=== PATIENT | female | born 1975 | race Caucasian/White ===

== ENCOUNTER 2018-06-02 12:54 | Outpatient (CLI) | payer MEDICAID ==
[~2018-06-02 12:54] MED LIST: HYDR-3720 PO; MUCINEX; PANT40TA2 PO; RABE20TA PO; SULF1TAB38 PO
== END 2018-06-02 13:30 | disposition home or self-care (01) ==
LOC: SLEEP 12:54
PROVIDERS: ATTEND Surgery
DX: G47.00 Insomnia, unspecified (principal); R06.83 Snoring; E66.9 Obesity, unspecified

== ENCOUNTER 2018-07-10 15:15 | Outpatient (RCR) | payer MEDICAID | END 2018-07-10 15:56 | disposition home or self-care (01) | PROVIDERS: ATTEND Nurse Practitioner | DX: M89.8X1 Other specified disorders of bone, shoulder (principal) ==

== ENCOUNTER → 2018-07-24 | Outpatient (CLI) | payer MEDICAID | LOC: CARD 08:58 | PROVIDERS: ATTEND Internal Medicine Cardiovascular Disease | DX: F41.9 Anxiety disorder, unspecified (principal); Z82.49 Family history of ischemic heart disease and other diseases of the circulatory system; E11.9 Type 2 diabetes mellitus without complications; Z83.3 Family history of diabetes mellitus; E66.9 Obesity, unspecified | CPT/HCPCS: 93306 ==

== ENCOUNTER 2018-09-05 01:36 | Emergency (ER) | payer SELFPAY ==
[~2018-09-05] VITALS: Ht 160 cm; Wt 101.6 kg
[2018-09-05] MEDS ORDERED: KETOROLAC 30 MG/ML VIAL IVP STA (02:04)
[2018-09-05] MEDS ORDERED: LACTATED RINGERS 1,000 ML IV ONE (02:04)
[2018-09-05 02:13] LABS: BASOPHILS % (AUTO) 0 % (0-10); EOSINOPHILS # (AUTO) 0.1 10^3/uL (0.0-0.3); EOSINOPHILS % (AUTO) 1 % (0-10); HEMATOCRIT 38 % (35-52); HEMOGLOBIN 13.3 G/DL (11.5-16.0); LYMPHOCYTES # (AUTO) 2.8 X 10^3 (1.0-4.0); LYMPHOCYTES % (AUTO) 35 % (12-44); MEAN CORPUSCULAR HEMOGLOBIN 31 PG (25-34); MEAN CORPUSCULAR HGB CONC 35 G/DL (32-36); MEAN CORPUSCULAR VOLUME 87 FL (80-99); MEAN PLATELET VOLUME 11.8 FL (7.4-10.4); MONOCYTES # (AUTO) 0.8 X 10^3 (0.0-1.0); MONOCYTES % (AUTO) 10 % (0-12); NEUTROPHILS # (AUTO) 4.3 X 10^3 (1.8-7.8); NEUTROPHILS % (AUTO) 54 % (42-75); PLATELET COUNT 246 10^3/uL (130-400); RED BLOOD COUNT 4.34 10^6/uL (4.35-5.85); RED CELL DISTRIBUTION WIDTH 12.8 % (10.0-14.5); WHITE BLOOD COUNT 8.1 10^3/uL (4.3-11.0)
[2018-09-05] MEDS ORDERED: ONDANSETRON 4 MG/2 ML (SDV) Z0FRAN IVP ONE (02:15)
[2018-09-05 02:34] LABS: ALANINE AMINOTRANSFERASE 30 U/L (0-55); ALBUMIN 4.6 GM/DL (3.2-4.5); ALKALINE PHOSPHATASE 20 U/L (40-136); AMYLASE 40 U/L (25-125); BILIRUBIN,TOTAL 0.4 MG/DL (0.1-1.0); BUN/CREATININE RATIO 20; CALCIUM 10.1 MG/DL (8.5-10.1); CARBON DIOXIDE 20 MMOL/L (21-32); CHLORIDE 107 MMOL/L (98-107); CREATININE SERUM 0.82 MG/DL (0.60-1.30); GFR ESTIMATED > 60; GLUCOSE 120 MG/DL (70-105); LIPASE 33 U/L (8-78); POTASSIUM 3.8 MMOL/L (3.6-5.0); SODIUM 142 MMOL/L (135-145); TOTAL PROTEIN 7.6 GM/DL (6.4-8.2)
[2018-09-05] MEDS ORDERED: fentaNYL INJECTION 100 MCG/2 ML AMP IVP STA ×2 (03:24→04:37)
[2018-09-05] MEDS ORDERED: HYOSCYAMINE 0.125 MG (LEVSIN) TAB PO ONE (03:30)
[2018-09-05 03:46] LABS: BILIRUBIN,URINE NEGATIVE (NEGATIVE); CLARITY,URINE CLEAR; COLOR,URINE YELLOW; GLUCOSE, URINE (UA) NEGATIVE (NEGATIVE); KETONES,URINE NEGATIVE (NEGATIVE); LEUKOCYTE ESTERASE ,URINE 1+ (NEGATIVE); NITRITE,URINE NEGATIVE (NEGATIVE); PH,URINE 5 (5-9); PROTEIN,URINE 2+ (NEGATIVE); UROBILINOGEN,URINE NORMAL (NORMAL)
[2018-09-05 03:55] LABS: BACTERIA,URINE FEW /HPF; HYALINE CASTS, URINE 0-2 /LPF; WBC,URINE RARE /HPF
[2018-09-05] MEDS ORDERED: IOHEXOL 350 MG/ML 150 ML (OMNIPAQUE 350) VIAL IV ONE (04:00)
[2018-09-05] MEDS ORDERED: NS 250 ML (IVPB) BAG IV ONE (04:00)
[2018-09-05] MEDS ORDERED: PANTOPRAZOLE 40 MG (PROTONIX) VIAL IV STA (04:43)
[2018-09-05] MEDS ORDERED: ORPHENADRINE 60 MG/2 ML (NORFLEX) AMP IV STA (04:43)
[2018-09-05] MEDS ORDERED: CYCL10TA9 PO (05:33)
[2018-09-05] MEDS ORDERED: ONDA4TAB8 PO (05:33)
[2018-09-05] MEDS ORDERED: HYOS0.1283 SL (05:33)
[2018-09-05] MEDS ORDERED: PANT40TA2 PO (05:34)
--- NOTE | 2018-09-05 05:35 | ED Abdominal Pain ---
General Chief Complaint: Abdominal/GI Problems Stated Complaint: ABD PAIN, GASTRIC SLEEVE ON [id number],STS MILD CP YES Nursing Triage Note: Pt ambulated to rm 10. Pt c/o severe abdominal pain that began approximately 1 hour prior to arrival. Pt reports taking liquid hydrocodone approximately 45 mins ago. Pt had gastric sleeve on 08/13/2018. Pt's pain is accompanied by nausea. Sepsis Screen: No Definite Risk Allergies and Home Medications Allergies Coded Allergies: No Known Drug Allergies (Verified , 08/30/09) Uncoded Allergies: NKDA (Allergy, Mild, 05/27/09) Home Medications Hydrocodone Bit/Acetaminophen 1 Tab Tablet, 1 TAB PO Q6H PRN for PAIN, (Reported ) Pantoprazole Sod 40 Mg Tab, 40 MG PO DAILY, (Reported) Past Kzlucns-Trnsxi-Talesm Hx Patient Social History Alcohol Use: Denies Use Recreational Drug Use: No 2nd Hand Smoke Exposure: No Recent Foreign Travel: No Contact w/Someone Who Travel: No Recent Infectious Disease Expo: No Recent Hopitalizations: Yes Immunizations Up To Date Date of Pneumonia Vaccine: Nov 18, 2008 Date of Influenza Vaccine: Sep 09, 2014 Past Medical History Surgeries: Yes Ear Surgery, Gallbladder, Hysterectomy, Orthopedic Respiratory: No Cardiac: No Neurological: No Reproductive Disorders: No Sexually Transmitted Disease: No Gastrointestinal: No Musculoskeletal: No Endocrine: No Cancer: No Psychosocial: No Integumentary: No Blood Disorders: No Physical Exam Vital Signs Vital Signs - First Documented 09/05/18 01:53 Temp 98.3 Pulse 70 Resp 22 B/P (MAP) 169/113 (131) Pulse Ox 100 O2 Delivery Room Air Capillary Refill : Less Than 3 Seconds Height/Weight/BMI Height: 5'3.00" Weight: 224lbs. 0.0oz. 101.649343lx; BMI Method:Stated Progress/Results/Core Measures Results/Orders Lab Results Laboratory Tests Test 09/05/18 02:05 09/05/18 03:35 09/05/18 04:48 Range/Units White Blood Count 8.1 4.3-11.0 10^3/uL Red Blood Count 4.34 L 4.35-5.85 10^6/uL Hemoglobin 13.3 11.5-16.0 G/DL Hematocrit 38 35-52 % Mean Corpuscular Volume 87 80-99 FL Mean Corpuscular Hemoglobin 31 25-34 PG Mean Corpuscular Hemoglobin Concent 35 32-36 G/DL Red Cell Distribution Width 12.8 10.0-14.5 % Platelet Count 246 130-400 10^3/uL Mean Platelet Volume 11.8 H 7.4-10.4 FL Neutrophils (%) (Auto) 54 42-75 % Lymphocytes (%) (Auto) 35 12-44 % Monocytes (%) (Auto) 10 0-12 % Eosinophils (%) (Auto) 1 0-10 % Basophils (%) (Auto) 0 0-10 % Neutrophils # (Auto) 4.3 1.8-7.8 X 10^3 Lymphocytes # (Auto) 2.8 1.0-4.0 X 10^3 Monocytes # (Auto) 0.8 0.0-1.0 X 10^3 Eosinophils # (Auto) 0.1 0.0-0.3 10^3/uL Basophils # (Auto) 0.0 0.0-0.1 10^3/uL Sodium Level 142 135-145 MMOL/L Potassium Level 3.8 3.6-5.0 MMOL/L Chloride Level 107 98-107 MMOL/L Carbon Dioxide Level 20 L 21-32 MMOL/L Anion Gap 15 H 5-14 MMOL/L Blood Urea Nitrogen 16 7-18 MG/DL Creatinine 0.82 0.60-1.30 MG/DL Estimat Glomerular Filtration Rate > 60 BUN/Creatinine Ratio 20 Glucose Level 120 H 70-105 MG/DL Calcium Level 10.1 8.5-10.1 MG/DL Corrected Calcium 8.5-10.1 MG/DL Total Bilirubin 0.4 0.1-1.0 MG/DL Aspartate Amino Transf (AST/SGOT) 26 5-34 U/L Alanine Aminotransferase (ALT/SGPT) 30 0-55 U/L Alkaline Phosphatase 20 L 40-136 U/L Total Protein 7.6 6.4-8.2 GM/DL Albumin 4.6 H 3.2-4.5 GM/DL Amylase Level 40 25-125 U/L Lipase 33 8-78 U/L Serum Test, Qualitative NEGATIVE NEGATIVE Urine Color YELLOW Urine Clarity CLEAR Urine pH 5 5-9 Urine Specific [place] 1.015 L 1.016-1.022 Urine Protein 2+ H NEGATIVE Urine Glucose (UA) NEGATIVE NEGATIVE Urine Ketones NEGATIVE NEGATIVE Urine Nitrite NEGATIVE NEGATIVE Urine Bilirubin NEGATIVE NEGATIVE Urine Urobilinogen NORMAL NORMAL MG/DL Urine Leukocyte Esterase 1+ H NEGATIVE Urine RBC (Auto) NEGATIVE NEGATIVE Urine RBC NONE /HPF Urine WBC RARE /HPF Urine Squamous Epithelial Cells 2-5 /HPF Urine Crystals NONE /LPF Urine Bacteria FEW H /HPF Urine Casts PRESENT /LPF Urine Hyaline Casts 0-2 H /LPF Urine Mucus NEGATIVE /LPF Urine Culture Indicated NO Troponin I < 0.30 <0.30 NG/ML My Orders Orders - LUIS OLSON DO Saline Lock/Iv-Start (09/05/18 01:57) Amylase (09/05/18 01:57) Cbc With Automated Diff (09/05/18 01:57) Comprehensive Metabolic Panel (09/05/18 01:57) Hcg,Qualitative Serum (09/05/18 01:57) Lipase (09/05/18 01:57) Ua Culture If Indicated (09/05/18 01:57) Acute Abd Series (09/05/18 01:57) Ketorolac Injection (Toradol Injection) (09/05/18 02:04) Ondansetron Injection (Zofran Injectio (09/05/18 02:15) Saline Lock/Iv-Start (09/05/18 02:04) Lactated Ringers (Lr 1000 Ml Iv Solution (09/05/18 02:04) Ct Sherley Chest/Noang Abd-Pelv W (09/05/18 02:08) Hyoscyamine Sl Tablet (Levsin Sl Tablet) (09/05/18 03:30) Fentanyl Injection (Sublimaze Injection (09/05/18 03:24) Iohexol Injection (Omnipaque 350 Mg/Ml 1 (09/05/18 04:00) Ns (Ivpb) (Sodium Chloride 0.9%) (09/05/18 04:00) Fentanyl Injection (Sublimaze Injection (09/05/18 04:37) Troponin I (09/05/18 04:43) Ekg Tracing (09/05/18 04:43) Orphenadrine Injection (Norflex Injectio (09/05/18 04:43) Pantoprazole Injection (Protonix Injecti (09/05/18 04:43) Medications Given in ED Current Medications Medications Dose Ordered Sig/Sharon Route Start Time Stop Time Status Last Admin Dose Admin Hyoscyamine Sulfate 0.25 mg ONCE ONCE PO 09/05/18 03:30 09/05/18 03:31 DC 09/05/18 03:36 0.25 MG Iohexol 125 ml ONCE ONCE IV 09/05/18 04:00 09/05/18 04:23 DC 09/05/18 03:53 125 ML Lactated Ringer's 1,000 ml @ 0 mls/hr Q0M ONCE IV 09/05/18 02:04 09/05/18 02:06 DC 09/05/18 02:17 1,000 MLS/HR Ondansetron HCl 4 mg ONCE ONCE IVP 09/05/18 02:15 09/05/18 02:16 DC 09/05/18 02:15 4 MG Sodium Chloride 80 ml ONCE ONCE IV 09/05/18 04:00 09/05/18 04:23 DC 09/05/18 03:53 80 ML Vital Signs/I&O 09/05/18 01:53 Temp 98.3 Pulse 70 Resp 22 B/P (MAP) 169/113 (131) Pulse Ox 100 O2 Delivery Room Air Blood Pressure Mean: 131 Departure Impression Primary Impression: Upper abdominal pain Additional Impression: S/P GASTRIC SLEEVE SURGERY Disposition: HOME, SELF-CARE Condition: Improved Departure-Patient Inst. Referrals: [facility] – [place] ([place]P/Family) Primary Care Physician FIDEL BHATT DO Patient Instructions: Acute Abdomen (Belly Pain), Adult (DC) Add. Discharge Instructions: CLEAR LIQUIDS--WATER, BROTH, JELLO, GATORADE WHEN YOU ARE FEELING BETTER, ADD BRATS DIET TO CLEAR LIQUIDS--BANANAS, RICE, APPLESAUCE, TOAST, SALTINES TAKE YOUR HYDROCODONE EVERY 4 HOURS NEEDED FOR PAIN FOLLOW UP WITH DR. BHATT TODAY OR SATURDAY FOR FURTHER CARE RETURN TO ER IF WORSE All discharge instructions reviewed with patient and/or family. Voiced understanding. Scripts Pantoprazole Sodium (Protonix) 40 Mg Tablet.dr 40 MG PO DAILY, #15 TAB Prov: LUIS OLSON DO 09/05/18 Ondansetron (Zofran Odt) 4 Mg Tab.rapdis 4 MG PO Q4H for Nausea/Vomiting, #10 TAB Prov: LUIS OLSON DO 09/05/18 Cyclobenzaprine HCl (Cyclobenzaprine HCl) 10 Mg Tablet 10 MG PO Q8H, #15 TAB Prov: LUIS OLSON DO 09/05/18 Hyoscyamine Sulfate (Levsin-Sl) 0.125 Mg Tab.subl 1-2 TAB SL Q4H for Abdominal Pain, #15 TAB Prov: LUIS OLSON DO 09/05/18 LUIS OLSON DO Sep 05, 2018 05:35
[2018-09-05] MEDS ORDERED: ONDANSETRON 4 MG/2 ML (SDV) Z0FRAN ONE ×2 (05:47→05:50)
--- NOTE | 2018-09-05 05:59 | Diagnostic Imaging Report ---
INDICATION: Abdominal pain PA chest, supine and upright abdominal images were obtained. There are postop changes from a gastric sleeve procedure. Lungs are clear. There is no intraperitoneal free air. Bowel gas pattern is normal. IMPRESSION: Postsurgical changes in the abdomen. No acute abnormality seen. Dictated by: Dictated on workstation # [id number]
[2018-09-05 06:19] VITALS: BP 155/78
--- NOTE | 2018-09-05 06:56 | Diagnostic Imaging Report ---
INDICATION: Abdominal pain after gastric sleeve surgery. CTA chest and CT abdomen and pelvis with IV contrast Thin axial sections through the chest, abdomen, and pelvis were obtained following intravenous contrast bolus. Multiplanar and MIP images were reconstructed and reviewed in the chest. Lungs are clear. There is no effusion or pneumothorax. Aorta is normal. There are no pulmonary emboli seen. There is no hilar or mediastinal lymphadenopathy. IMPRESSION: Negative CTA chest CT abdomen and pelvis There are postop changes from gastric sleeve surgery. There is no evidence of gastric perforation. Liver appears normal. The gallbladder surgically absent. Spleen is not enlarged. Pancreas is normal. Kidneys and adrenals appear normal. Small bowel is not dilated. Colon is unremarkable. Uterus is surgically absent. There is no intraperitoneal free air or free fluid. IMPRESSION: Postop changes from gastric sleeve surgery. No acute abnormality seen. I agree with preliminary interpretation. Dictated by: Dictated on workstation # [id number]
== END 2018-09-05 06:19 | disposition home or self-care (01) ==
LOC: EDUNIT# 01:36 → ER 01:39
DX: G89.18 Other acute postprocedural pain (principal); R10.10 Upper abdominal pain, unspecified; Z90.710 Acquired absence of both cervix and uterus; Z98.84 Bariatric surgery status
CPT/HCPCS: 36415; 71275; 74022; 74177; 80053; 81000; 82150; 83690; 84484; 84703; 85025; 93005

== ENCOUNTER → 2019-12-31 | Outpatient (CLI) | payer BC ==
[~2019-12-31] MED LIST changes: +CYCL10TA9 PO; +HYOS0.1283 SL; +ONDA4TAB8 PO
--- NOTE | 2020-01-01 08:42 | Diagnostic Imaging Report ---
Digital mammogram. Indication: Bilateral screening. This study was compared to the prior exam of 08/28/2016. At this time there are no current complaints. The current study was also evaluated with a Computer Aided Detection (CAD) system. FINDINGS: There are scattered fibroglandular densities in both breasts which could obscure a lesion. Overall, there does not appear to have been any significant change when compared to the prior exam. No primary or secondary sign of malignancy is noted. IMPRESSION: 1. There is no radiographic evidence for malignancy. 2. The patient should have her annual bilateral screening mammogram on schedule in December of 2020. ACR BI-RADS Category 1: Negative. Result letter will be mailed to the patient. Note: At least 10% of breast cancer is not imaged by mammography. Dictated by: Dictated on workstation # [id number]
== END ==
LOC: RAD 15:10
PROVIDERS: ATTEND Nurse Practitioner Community Health
DX: Z12.31 Encounter for screening mammogram for malignant neoplasm of breast (principal)
CPT/HCPCS: 77067

== ENCOUNTER 2022-01-21 11:32 | Emergency (ER) | payer BC ==
[~2022-01-21] VITALS: Ht 160 cm; Wt 72.1 kg
[~2022-01-21 11:32] MED LIST changes: +CYCL10TA25 PO; -CYCL10TA9 PO
[2022-01-21 11:40] VITALS: BP 119/74
[2022-01-21] MEDS ORDERED: TRIAMCINOLONE ACET (KENALOG-40) 40 MG/ML 1 ML VIAL IA ONE (12:15)
--- NOTE | 2022-01-21 12:40 | ED Lower Extremity ---
General Chief Complaint: Lower Extremity Stated Complaint: LEFT HIP/LEG PAIN Nursing Triage Note: PT AMB TO FT 1 W C/O LEFT HIP PAIN THAT RADIATES DOWN HER LEFT LEG SX SATURDAY. PT DESCRIBES PAIN SHARP. PT A&OX4. (AMARI REYES MD) Source: patient Exam Limitations: no limitations (EVIE ROWE STUDENT) History of Present Illness Date Seen by Provider: Jan 21, 2022 Time Seen by Provider: 12:05 Initial Comments This is an otherwise healthy 46 YO female presenting to the ED with left hip/leg pain for the past 2 days. Pt states pain started after she had been sitting down for an hour and a half. Denies any trauma or injuries but says she works 2 jobs and does a lot of walking and exercise. Took Tylenol last night without improvement. Says pain is worse with walking or sitting for long periods of time. Able to ambulate with a limp. Denies numbness or tingling in the affected leg. Pain/Injury Location: left hip, left leg (EVIE ROWE STUDENT) Allergies and Home Medications Allergies Coded Allergies: No Known Drug Allergies (Verified , 08/30/09) Uncoded Allergies: NKDA (Allergy, Mild, 05/27/09) Patient Home Medication List Home Medication List Reviewed: Yes (AMARI REYES MD) Cyclobenzaprine HCl (Cyclobenzaprine HCl) 10 Mg Tablet, 10 MG PO Q8H Prescribed by: LUIS OLSON on 09/05/18 0533 Hydrocodone Bit/Acetaminophen (Hydrocodone-Apap 10-325 Tab) 1 Tab Tablet, 1 TAB PO Q6H PRN for PAIN, (Reported) Entered as Reported by: JAMIE SUÁREZ on 10/01/14 1146 Hyoscyamine Sulfate (Levsin-Sl) 0.125 Mg Tab.subl, 1-2 TAB SL Q4H Prescribed by: LUIS OLSON on 09/05/18 0533 Ondansetron (Zofran Odt) 4 Mg Tab.rapdis, 4 MG PO Q4H Prescribed by: LUIS OLSON on 09/05/18 0533 Pantoprazole Sod (Protonix (Non-Formulary)) 40 Mg Tab, 40 MG PO DAILY, (Reported) Entered as Reported by: MALI LITTLE on 10/08/14 0923 Pantoprazole Sodium (Protonix) 40 Mg Tablet.dr, 40 MG PO DAILY Prescribed by: LUIS OLSON on 09/05/18 0534 Review of Systems Constitutional: No chills, No fever EENTM: No blurred vision, No double vision Respiratory: No cough, No dyspnea on exertion Cardiovascular: No chest pain, No palpitations Gastrointestinal: No abdominal pain, No nausea, No vomiting Genitourinary: no symptoms reported Musculoskeletal: see HPI Skin: No pruritus, No rash Psychiatric/Neurological: Denies Headache, Denies Numbness, Denies Paresthesia (EVIE ROEW MED STUDENT) All Other Systems Reviewed Negative Unless Noted: Yes (Negative excepted noted.) (EVIE ROWE STUDENT) Past Bfzwhej-Loplhr-Tqrmft Hx Patient Social History Tobacco Use?: No Use of E-Cig and/or Vaping dev: No Substance use?: No Alcohol Use?: No (AMARI REYES MD) Immunizations Up To Date Influenza Vaccine Up-to-Date: No; Not Current First/Initial COVID19 Vaccinat: 2020 Second COVID19 Vaccination Marty: 2020 COVID19 Vaccine Aprn: DEBORAH (AMARI REYES MD) Past Medical History Surgeries: Yes Abdominal, Bladder Surgery, Ear Surgery, Gallbladder, Hysterectomy, Oophorectomy, Tubal Ligation Respiratory: No Cardiac: No Neurological: No Reproductive Disorders: Yes (CERVICAL DYSPLASIA) AUTOMOTIVE TIRE TECHNICIAN History: Hysterectomy, Tubal Ligation Sexually Transmitted Disease: No Genitourinary: Yes (INCONTINENCE--S/P BLADDER SLING AND ANTERIOR REPAIR) Gastrointestinal: No Musculoskeletal: No Endocrine: No HEENT: Yes (BMT'S) Chronic Ear Infection Cancer: No Psychosocial: No Integumentary: No Blood Disorders: No (AMARI REYES MD) Physical Exam Vital Signs Vital Signs - First Documented 01/21/22 11:40 Temp 36.4 Pulse 66 Resp 20 B/P (MAP) 119/74 (89) O2 Delivery Room Air (EVIE ROWE STUDENT) Vital Signs Capillary Refill : Less Than 3 Seconds (AMARI REYES MD) Height, Weight, BMI Height: 5'3.00" Weight: 224lbs. 0.0oz. [id number]; 28.00 BMI Method:Stated (AMARI REYES MD) General Appearance: WD/WN, no apparent distress HEENT: PERRL/EOMI; No scleral icterus (R), No scleral icterus (L) Neck: supple, normal inspection Cardiovascular: regular rate, rhythm, no edema, no murmur Respiratory: lungs clear, normal breath sounds, no respiratory distress, no accessory muscle use Gastrointestinal: non tender, soft; No distended Back: No no vertebral tenderness; other (no paraspinal tenderness) Neurologic/Tendon: normal sensation, normal motor functions, other (left lateral hip tenderness over the greater trochanter; no overlying erythema or unilateral swelling; NVI distally, sensation intact; DP pulses 2+ bilaterally; ambulates with antalgic gait) Neurologic/Psychiatric: no motor/sensory deficits, alert, normal mood/affect, oriented x 3 Skin: normal color, warm/dry (EVIE ROWE) Procedures/Interventions Progress The area of maximum tenderness over the left greater trochanteric bursa was identified with palpation. Jerry was made with depression. Skin was cleaned with alcohol and a small wheal of lidocaine was injected for local anesthetic. Skin was prepped with Betadine. Using sterile technique an injection of 40 mg triamcinolone mixed with 3 mL of lidocaine was injected into the bursa using a 25-gauge needle. Procedure was performed by Evie Rowe, MS 4 under my direct supervision. Patient tolerated the procedure well and there were no complications. She had immediate relief of pain. (AMARI REYES MD) Progress/Results/Core Measures Results/Orders Medications Given in ED Current Medications Medications Dose Ordered Sig/Sharon Route Start Time Stop Time Status Last Admin Dose Admin Triamcinolone Acetonide 40 mg ONCE ONCE IA 01/21/22 12:15 01/21/22 12:16 DC 01/21/22 12:14 40 MG (EVIE ROWE STUDENT) Vital Signs/I&O 01/21/22 11:40 Temp 36.4 Pulse 66 Resp 20 B/P (MAP) 119/74 (89) O2 Delivery Room Air (EVIE ROWE) Blood Pressure Mean: 89 Progress Progress Note : Progress Note Patient was seen and examined. She had point tenderness over the left greater trochanter bursa. We discussed options. She wishes to receive a steroid injection. Risks and benefits were reviewed. Risks described included bleeding, pain, infection, and adverse reaction to steroids. Patient verbally consented to the procedure. Bursa injection was performed by Evie Rowe, MS 4 under my direct supervision with immediate improvement in pain. (AMRAI REYES MD) Departure Impression Primary Impression: Greater trochanteric bursitis of left hip Disposition: HOME, SELF-CARE Condition: Improved Departure-Patient Inst. Decision time for Depature: 12:38 (AMARI REYES MD) [place]: [facility] [place] [facility] [place] Primary Care Physician Patient Instructions: Hip Bursitis (DC) Add. Discharge Instructions: Periodically massage the injected area over the next several hours to help diffuse the medication. You may ice the area and 20-minute intervals to help reduce pain and inflammation. Avoid activities that exacerbate pain. In the short-term, you may use ibuprofen up to 600 mg every 6 hours as needed to help with pain. Add Tylenol (acetaminophen) up to 1000 mg every 6 hours as needed for additional pain relief. If you are not getting sufficient relief of the pain or does not completely resolve over the next couple of weeks, please follow-up with your primary care provider. If symptoms are worsening, please return to the emergency room. You may call with questions or concerns. Read the attached information regarding care of trochanteric bursitis. All discharge instructions reviewed with patient and/or family. Voiced understanding. Work/School Note: Work Release Form Date Seen in the Emergency Department: Jan 21, 2022 Return to Work: Jan 21, 2022 Other Restrictions Listed Below: Avoid activities that worsen hip pain. AMARI REYES MD Jan 21, 2022 12:40 EVIE ROWE MED STUDENT Jan 21, 2022 12:51
== END 2022-01-21 12:46 | disposition home or self-care (01) ==
LOC: EDUNIT# 11:32 → ER 11:35
DX: M70.62 Trochanteric bursitis, left hip (principal)
CPT/HCPCS: 99282; A4565

== ENCOUNTER → 2022-10-08 | Outpatient (CLI) | payer BC ==
--- NOTE | 2022-10-08 11:35 | Diagnostic Imaging Report ---
PROCEDURE: MRI right joint upper extremity without contrast. TECHNIQUE: Multiplanar, multisequence non contrast-enhanced MRI of the right upper extremity was accomplished. INDICATION: Right shoulder pain and numbness. COMPARISON: 03/02/2015 FINDINGS: No acute fracture seen in the right shoulder. Alignment appears normal. There is no significant joint effusion. There is mild fluid and thickening in the subacromial subdeltoid bursa. There is moderate degenerative change in the acromioclavicular joint. The supraspinatus tendon demonstrates a high-grade partial-thickness tear at the insertion measuring about 1.2 cm wide. This appears to be predominantly intrasubstance. The subscapularis tendon is intact. The infraspinatus and teres minor tendons appear intact. No focal muscular atrophy is seen. The long head of the biceps tendon appears normal in course and signal. The glenoid labrum is suboptimally evaluated in the absence of intra-articular contrast. No para labral cyst is seen. The acromion has a slightly curved undersurface. The coracoclavicular and coracoacromial ligaments are intact. IMPRESSION: 1. Moderate-sized high-grade partial-thickness tear of the supraspinatus tendon. No full-thickness tear is seen in the rotator cuff. There is no muscular atrophy. 2. Moderate degenerative change in the acromioclavicular joint. Mild subacromial subdeltoid bursitis. Dictated by: Dictated on workstation # [id number]
== END ==
LOC: RAD 08:14
DX: M75.111 Incomplete rotator cuff tear or rupture of right shoulder, not specified as traumatic (principal); M19.011 Primary osteoarthritis, right shoulder; M75.51 Bursitis of right shoulder
CPT/HCPCS: 73221

== ENCOUNTER 2022-12-14 19:15 | Emergency (ER) | payer BC, OTHER ==
[~2022-12-14] VITALS: Ht 160 cm; Wt 75.9 kg
--- NOTE | 2022-12-14 19:42 | ED Lower Extremity ---
General Chief Complaint: Lower Extremity Stated Complaint: RIGHT BIG TOE INJURY Nursing Triage Note: pt states she thinks she broke her right big toe this evening, kicked a closet door Source: patient Exam Limitations: no limitations History of Present Illness Date Seen by Provider: Dec 14, 2022 Time Seen by Provider: 19:40 Initial Comments Patient is a 47-year-old female who presents to the emergency department for evaluation of right great toe pain that began just shortly prior to arrival when she excellently kicked a closet door. She states the pain is intense has not abated since the injury occurred. She did not take anything for the pain before presenting to the emergency department. She states the pain is much worse when she attempts to bear weight or walk. Denies any other pain or injury at this time. Allergies and Home Medications Allergies Coded Allergies: No Known Drug Allergies (Verified , 08/30/09) Uncoded Allergies: NKDA (Allergy, Mild, 05/27/09) Patient Home Medication List Home Medication List Reviewed: Yes Cyclobenzaprine HCl (Cyclobenzaprine HCl) 10 Mg Tablet, 10 MG PO Q8H Prescribed by: LUIS OLSON on 09/05/18532 Hydrocodone Bit/Acetaminophen (Hydrocodone-Apap 10-325 Tab) 1 Tab Tablet, 1 TAB PO Q6H PRN for PAIN, (Reported) Entered as Reported by: JAMIE SUÁREZ on 10/01/14 1146 Hyoscyamine Sulfate (Levsin-Sl) 0.125 Mg Tab.subl, 1-2 TAB SL Q4H Prescribed by: LUIS OLSON on 09/05/1833 Ondansetron (Zofran Odt) 4 Mg Tab.rapdis, 4 MG PO Q4H Prescribed by: LUIS OLSON on 09/05/1833 Pantoprazole Sod (Protonix (Non-Formulary)) 40 Mg Tab, 40 MG PO DAILY, (Reported) Entered as Reported by: MALI LITTLE on 10/08/14922 Pantoprazole Sodium (Protonix) 40 Mg Tablet.dr, 40 MG PO DAILY Prescribed by: LUIS OLSON on 09/05/18 0534 Review of Systems Constitutional: no symptoms reported EENTM: no symptoms reported Respiratory: no symptoms reported Cardiovascular: no symptoms reported Gastrointestinal: no symptoms reported Genitourinary: no symptoms reported Musculoskeletal: see HPI Skin: no symptoms reported Psychiatric/Neurological: No Symptoms Reported Past Jtcowgs-Svzywz-Wywcax Hx Patient Social History Tobacco Use?: No Substance use?: No Alcohol Use?: No Immunizations Up To Date Influenza Vaccine Up-to-Date: Yes; Up-to-Date First/Initial COVID19 Vaccinat: 2020 Second COVID19 Vaccination Marty: 2020 Third COVID19 Vaccination Date: 2020 Past Medical History Surgeries: Yes Abdominal, Bladder Surgery, Ear Surgery, Gallbladder, Hysterectomy, Oophorectomy, Tubal Ligation Respiratory: No Cardiac: No Neurological: No Reproductive Disorders: Yes (CERVICAL DYSPLASIA) [employer] DIRECTOR History: Hysterectomy, Tubal Ligation Sexually Transmitted Disease: No Genitourinary: Yes (INCONTINENCE--S/P BLADDER SLING AND ANTERIOR REPAIR) Gastrointestinal: No Musculoskeletal: No Endocrine: No HEENT: Yes (BMT'S) Chronic Ear Infection Cancer: No Psychosocial: No Integumentary: No Blood Disorders: No Physical Exam Vital Signs Vital Signs - First Documented 12/14/22 19:33 Temp 36.4 Pulse 70 Resp 16 B/P (MAP) 133/80 (97) Pulse Ox 100 O2 Delivery Room Air Capillary Refill : Less Than 3 Seconds Height, Weight, BMI Height: 5'3.00" Weight: 224lbs. 0.0oz. 101.133033hs; 29.00 BMI Method:Stated General Appearance: WD/WN, no apparent distress HEENT: PERRL/EOMI, normal ENT inspection, TMs normal, pharynx normal Neck: non-tender, full range of motion, supple, normal inspection Cardiovascular: regular rate, rhythm Respiratory: chest non-tender, lungs clear, normal breath sounds, no respiratory distress, no accessory muscle use Gastrointestinal: normal bowel sounds, non tender, soft Feet: right foot bone tenderness, right foot ecchymosis, right foot limited ra nge of motion, right foot pain, right foot swelling Neurologic/Psychiatric: no motor/sensory deficits, alert, normal mood/affect, oriented x 3 Skin: normal color, warm/dry Progress/Results/Core Measures Results/Orders My Orders Orders - LEFTY MORGAN APRN Foot, Right, 3 View (12/14/22 19:38) Hydrocodone/Apap 5/325 Tablet (Lortab 5 (12/14/22 20:30) Vital Signs/I&O 12/14/22 19:33 Temp 36.4 Pulse 70 Resp 16 B/P (MAP) 133/80 (97) Pulse Ox 100 O2 Delivery Room Air Blood Pressure Mean: 97 Progress Progress Note : Progress Note Patient is nontoxic and well-hydrated on exam. There is some ecchymosis and swelling noted to the right great toe. She is able to flex the toe but this do es cause increased pain. Sensation is intact in the distal portion of the right great toe. DP pulses are 3+. X-rays of the right foot reveal a nondisplaced fracture of the great toe. Patient will be given crutches to assist with ambulation. She was given an oral dose of hydrocodone in the emergency department and will be discharged home with a short course of the same. Follow-up with PCP and/or orthopedics for further evaluation. Return precautions for urgent symptomology discussed. Patient verbalized understanding. Departure Impression Primary Impression: Fracture of right great toe Qualified Codes: S92.404A - Nondisplaced unspecified fracture of right great toe, initial encounter for closed fracture Disposition: 01 HOME, SELF-CARE Condition: Stable Departure-Patient Inst. Decision time for Depature: 20:25 Referrals: [facility] [place] (PCP/Family) Primary Care Physician Patient Instructions: Toe Fracture ED Scripts Hydrocodone Bit/Acetaminophen (HYDROcodone/APAP 5 MG/325 MG TAB) 1 Tab Tab 1 TAB PO Q6H PRN for PAIN-MODERATE (5-7) for 2 Days, #8 TAB 0 Refills Prov: LEFTY MORGAN APRN 12/14/22 LEFTY MORGAN APRN Dec 14, 2022 19:41
--- NOTE | 2022-12-14 20:07 | Diagnostic Imaging Report ---
INDICATION: Toe pain. COMPARISON: None available. TECHNIQUE: Three radiographs of the right foot dated December 14, 2022. FINDINGS: Stellate lucencies are identified extending through the mid aspect of the 1st digit distal phalanx with probable intra-articular extension to the 1st interphalangeal joint. No additional fracture or dislocation. No destructive osseous process. Lisfranc joint is well aligned. Minimal scattered degenerative changes. No suspicious radiopaque foreign body. IMPRESSION: Acute appearing nondisplaced minimally comminuted fracturing involving the 1st digit distal phalanx with intra-articular extension to the 1st interphalangeal joint. Dictated by: Dictated on workstation # [id number]
[2022-12-14] MEDS ORDERED: ACHD5005 PO (20:28)
[2022-12-14] MEDS ORDERED: HYDROcodone/APAP 5 MG/325 MG (LORTAB) TAB PO ONE (20:30)
[2022-12-14 20:45] VITALS: BP 133/80
== END 2022-12-14 20:47 | disposition home or self-care (01) ==
LOC: EDUNIT# 19:15 → ER 19:17
DX: S92.404A Nondisplaced unspecified fracture of right great toe, initial encounter for closed fracture (principal); W22.8XXA Striking against or struck by other objects, initial encounter
CPT/HCPCS: 73630